=== PATIENT | female | born 1940 | race Caucasian/White ===

== ENCOUNTER → 2016-11-03 | Outpatient (CLI) | payer MEDICARE ==
--- NOTE | 2016-11-03 12:13 | PN ---
DATE OF SERVICE: 11/03/2016 A 75-year-old lady who has been followed in the Sleep Center for treatment of obstructive sleep apnea-hypopnea syndrome. Patient received a new CPAP unit during the last year. She is very satisfied with this unit. It is very quiet. She is able to use equipment every night for the whole night. I checked her CPAP unit. CPAP pressure is 9 cm of water, ramp optometric regimen. Usage is 29 out of 30 for more than 4 hours. Leak is 7 L/min, which is in very good range. Apnea-hypopnea index for the last month only 0.6. Patient is using a nasal mask and she has little irrigation on the nose secondary to the mask. [place] Sleepiness Scale is only 3. MEDICATIONS: Carvedilol, metformin, hydrochlorothiazide, losartan, pravastatin, Levoxyl, omeprazole, baby aspirin, vitamins. During physical exam, patient in no distress. BP 128/73, HR 92, RR 16, weight 164.2, which is about 5 pounds more than last year, temperature 98.0. Oxygen saturation at room air 96%. GENERAL: A pleasant patient without any distress. HEENT: PERRLA, EOMI. Evaluation of oropharynx showed tongue protrudes midline. NECK: Supple. No JVD. Thyroid is not palpable. LUNGS: Clear to percussion and to auscultation. Good air exchange. No wheezing or rhonchi. HEART: S1, S2 regular. No murmurs, gallops or rubs. ABDOMEN: Soft and nontender. Bowel sounds are present. No organomegaly appreciated. EXTREMITIES: No clubbing or cyanosis. FRONT OFFICE COORDINATOR: Awake, alert, and oriented x3. Cranial nerves 2 to 7 intact. There is no fasciculation or atrophy noted. No focal deficits observed. IMPRESSION: 1. Severe obstructive sleep apnea-hypopnea syndrome on full control with CPAP at the pressure of 9 cm of water. Patient demonstrated practically 100% compliance with treatment, benefiting from treatment. 2. Diabetes mellitus. 3. Hypertension. 4. Hypothyroidism. 5. Acid reflux. 6. Hyperlipidemia. 7. Status post hysterectomy. PLAN: 1. We will consider to change patient nasal mask to different style of nasal mask or to a nasal pillow mask. In case of nasal pillow mask, patient could use additional AYR gel. 2. Sleep hygiene with time in bed for at least 8 hours. 3. No driving if feeling any sleepiness. 4. Watching weight. Thank you very much for allowing me to participate in the care of your patient. Sincerely, Onesimo Gupta MD, PhD, FAASM. Diplomat of [place] Board of [employer], Sleep Medicine Board by [place] [employer] [place] Board of [employer] Medicine Profile Saw Operator of [facility] [place]
== END | disposition home or self-care (01) ==
LOC: SLEEP 10:34
PROVIDERS: ATTEND Internal Medicine
DX: G47.33 Obstructive sleep apnea (adult) (pediatric) (principal); E11.9 Type 2 diabetes mellitus without complications; I10 Essential (primary) hypertension; E07.9 Disorder of thyroid, unspecified; K21.9 Gastro-esophageal reflux disease without esophagitis; E78.5 Hyperlipidemia, unspecified; Z98.890 Other specified postprocedural states; Z79.899 Other long term (current) drug therapy

== ENCOUNTER → 2017-10-26 | Outpatient (CLI) | payer MEDICARE ==
--- NOTE | 2017-10-26 14:36 | PN ---
PROGRESS NOTE FOLLOWUP STUDY: DATE OF SERVICE: 10/26/2017 A 76-year-old lady who has been followed in Sleep Center for treatment of obstructive sleep apnea-hypopnea syndrome. Patient continued to use her CPAP equipment every night for the whole night without any significant problems. According to her , no more opening her mouth during the sleep. [place] Sleepiness Scale today is 8. I checked patient's CPAP unit. CPAP pressure is 9 cm of water, usage is 100% of the time more than 4 hours. Average usage 9.1 hours. Leak is 7 L/minute which is in good range. Apnea-hypopnea index only 0.5, which is totally perfect. MEDICATIONS: Metformin, carvedilol, hydrochlorothiazide, losartan, Levoxyl, pravastatin, baby aspirin, vitamins,. PHYSICAL EXAM: Patient in no distress. BP 137/70, HR 72, RR 16, height 5, 5, weight 161. This is 3 pounds less than during previous visit. Body mass index 26.7, temperature 97.9, oxygen saturation at room air 98%. Oropharynx extremely low position of soft palate. Neck Supple, no JVD. Thyroid is not palpable. LUNGS Clear to percussion and to auscultation. Good air exchange. No wheezing or rhonchi. HEART S1, S2 regular. No murmurs, gallops, or rubs. ABDOMEN Soft and nontender. Bowel sounds are present. No organomegaly appreciated. EXTREMITIES No clubbing or cyanosis. ICE PLATFORM SUPERVISOR Awake, alert, and oriented X3. Cranial nerves 2 to 7 intact. There is no fasciculation or atrophy. noted. No focal deficits observed. IMPRESSION: 1. Severe obstructive sleep apnea-hypopnea syndrome. Patient demonstrated 100% compliance with treatment, respiration on full control with CPAP at 9 cm of water, benefitting from treatment. 2. Hypertension. 3. Diabetes mellitus. 4. Hypothyroidism. 5. Acid reflux. 6. Hyperlipidemia. 7. Status post hysterectomy. PLAN: 1. Continue treatment with CPAP every night. 2. Prescription for all necessary CPAP supplies including mask, tube, filters. 3. Watching weight. 4. No driving if feeling sleepiness. 5. Followup visit in 1 year or earlier if patient has any problems. Thank you very much for allowing me to participate in the management of your patient. Sincerely, Onesimo Gupta MD, PhD, FAASM Diplomat of [employer] Specialties [employer] Board of Internal Medicine Terminal Operations Manager of [facility] [place] MMJAMALL / CARISSAN: [id number] /
== END | disposition home or self-care (01) ==
LOC: SLEEP 13:11
PROVIDERS: ATTEND Internal Medicine
DX: G47.33 Obstructive sleep apnea (adult) (pediatric) (principal); I10 Essential (primary) hypertension; E11.9 Type 2 diabetes mellitus without complications; E03.9 Hypothyroidism, unspecified; E78.5 Hyperlipidemia, unspecified; K21.9 Gastro-esophageal reflux disease without esophagitis; Z79.82 Long term (current) use of aspirin; Z79.84 Long term (current) use of oral hypoglycemic drugs; Z79.899 Other long term (current) drug therapy; Z90.710 Acquired absence of both cervix and uterus; Z99.89 Dependence on other enabling machines and devices

== ENCOUNTER → 2018-12-20 | Outpatient (CLI) | payer MEDICARE ==
--- NOTE | 2018-12-20 14:54 | SFUN ---
SLEEP CENTER FOLLOW UP NOTE DATE OF SERVICE: 12/20/2018 A 77-year-old lady who has been followed in the Sleep Center for treatment of obstructive sleep apnea-hypopnea syndrome. The patient continued to use her CPAP equipment every night without significant problems. No snoring with the machine. [place] Sleepiness Scale is normal 3. I checked her CPAP unit. CPAP pressure is 9 cm of water. Patient is using it every night, average 8.8 hours per night. Leak is only 6 L/minute. Apnea-hypopnea index 0.7, which is perfect. MEDICATIONS: Carvedilol, metformin, hydrochlorothiazide, losartan, Levoxyl, pravastatin, baby aspirin, vitamins. PHYSICAL EXAM: Patient in no distress. BP 105/67, HR 76, RR 18, height 5, 4-1/2 inches, weight 164.6 pounds, body mass index 27.7, temperature 98.3, oxygen saturation at room air 96%. OROPHARYNX: Extremely low position of soft palate. Neck Supple, no JVD. Thyroid is not palpable. LUNGS Clear to percussion and to auscultation. Good air exchange. No wheezing or rhonchi. HEART S1, S2 regular. No murmurs, gallops, or rubs. ABDOMEN Soft and nontender. Bowel sounds are present. No organomegaly appreciated. EXTREMITIES No clubbing or cyanosis. EDITOR PUBLICATIONS Awake, alert, and oriented X3. Cranial nerves 2 to 7 intact. There is no fasciculation or atrophy. noted. No focal deficits observed. IMPRESSION: 1. Severe obstructive sleep apnea-hypopnea syndrome, patient demonstrated 100% compliance with treatment, benefitting from treatment. 2. Hypertension. 3. Diabetes mellitus. 4. Hypothyroidism. 5. Acid reflux. 6. Hyperlipidemia. 7. Status post hysterectomy. PLAN: 1. Patient will continue to use CPAP equipment every night for the whole night. 2. Prescription for all necessary CPAP supplies, including [place] small, medium size nasal mask. I will write her prescription for all necessary CPAP supplies today. 3. Watching weight. 4. Sleep hygiene with regular time in bed for 7-1/2 hours. 5. No driving if feeling sleepiness. 6. Followup visit in 1 year or earlier if patient has any problems. Thank you very much for allowing me to participate in the management of your patient. Sincerely, Onesimo Gupta MD, PhD, FAASM Diplomat of [employer] Board of Medical Specialties [employer] Board of Internal Medicine Event Mgr of [facility] [place] MMODL / CARISSAN: [id number] /
== END ==
LOC: SLEEP 13:23
PROVIDERS: ATTEND Internal Medicine
DX: G47.33 Obstructive sleep apnea (adult) (pediatric) (principal); I10 Essential (primary) hypertension; E11.9 Type 2 diabetes mellitus without complications; E03.9 Hypothyroidism, unspecified; K21.9 Gastro-esophageal reflux disease without esophagitis; E78.5 Hyperlipidemia, unspecified; Z90.710 Acquired absence of both cervix and uterus; Z99.89 Dependence on other enabling machines and devices; Z79.899 Other long term (current) drug therapy; Z79.84 Long term (current) use of oral hypoglycemic drugs; Z79.82 Long term (current) use of aspirin

== ENCOUNTER → 2021-01-14 | Outpatient (CLI) | payer MEDICARE ==
--- NOTE | 2021-01-14 16:58 | SFUN ---
SLEEP CENTER FOLLOW UP NOTE DATE OF SERVICE: 01/14/2021 This 80-year-old lady has been followed in Sleep Center for treatment of obstructive sleep apnea-hypopnea syndrome. Patient continues to use her CPAP equipment every night, but she complains that her nasal mask irritates her nasal bridge. [place] Sleepiness Scale today is 5, which is normal. I checked her CPAP unit. CPAP pressure is 9 cm of water. Usage is 30/30 nights for more than 4 hours with average usage 9.3 hours per night, which is great compliance. Leak is only 1 L/minute. Apnea-hypopnea index is 0.5, which is perfect. MEDICATIONS: 1. Metformin 500 mg one tablet in the morning and two in the afternoon. 2. Levoxyl 75 mcg five times per week. 3. Famotidine 20 mg once a day. 4. Irbesartan 300 mg once a day. 5. 20 mg once a day. 6. Carvedilol 12.5 mg twice a day. 7. 2000 mg twice a day. PHYSICAL EXAMINATION: GENERAL: A pleasant lady without distress. VITAL SIGNS: BP 153/84, HR 83, RR 12, height 5 feet 5 inches, weight 172.8, body mass index 28.6, temperature 98.5, oxygen saturation at room air 97%. HEENT: PERRLA, EOMI. Evaluation of oropharynx showed tongue protrudes midline. Extremely low position of soft palate. Mallampati IV. NECK: Supple. No JVD. Thyroid is not palpable. LUNGS: Clear to percussion and to auscultation. Good air exchange. No wheezing or rhonchi. HEART: S1, S2 regular. No murmurs, gallops or rubs. ABDOMEN: Soft and nontender. Bowel sounds are present. No organomegaly appreciated. EXTREMITIES: No clubbing or cyanosis. CERTIFIED FLEX ENDOSCOPE REPROCESSOR: Awake, alert, and oriented X3. Cranial nerves 2 to 7 intact. There is no fasciculation or atrophy. noted. No focal deficits observed. GENERAL: lady without distress IMPRESSION: 1. Severe obstructive sleep apnea-hypopnea syndrome. Patient demonstrated 100% compliance with treatment, benefitting from treatment. Normal respiration on CPAP. 2. Hypertension. 3. Diabetes mellitus. 4. Hypothyroidism. 5. Acid reflux. 6. Hyperlipidemia. 7. Status post hysterectomy. PLAN: 1. I discussed with the patient the possibility of changing her mask to a different style. We will try AirFit P10 nasal pillow mask. I wrote a prescription for this new type of mask and all other necessary supplies. 2. Patient will continue to use PAP equipment every night for the whole night. 3. Sleep hygiene with regular time in bed for at least 7-1/2 to 8 hours. 4. Precautions related to driving. No driving if feeling sleepiness. 5. I will maintain all necessary prescription for PAP supplies including mask, tube, filters. 6. Watching weight. 7. Follow-up visit in 6 months or earlier if patient has any problems. Thank you very much for allowing me to participate in the management of your patient. Sincerely, Onesimo Gupta MD, PhD, FAASM Diplomat of [employer] Board of Medical Specialties French Board of Internal Medicine Java Scala Developer of [facility] [place] MMODL / CARISSAN: [id number] /
== END ==
LOC: SLEEP 15:06
PROVIDERS: ATTEND Internal Medicine
DX: G47.33 Obstructive sleep apnea (adult) (pediatric) (principal); I10 Essential (primary) hypertension; E11.9 Type 2 diabetes mellitus without complications; E03.9 Hypothyroidism, unspecified; K21.9 Gastro-esophageal reflux disease without esophagitis; E78.5 Hyperlipidemia, unspecified; Z90.711 Acquired absence of uterus with remaining cervical stump

== ENCOUNTER → 2021-08-05 | Outpatient (CLI) | payer MEDICARE ==
--- NOTE | 2021-08-06 08:49 | SFUN ---
SLEEP CENTER FOLLOW UP NOTE DATE OF SERVICE: 08/05/2021 80-year-old lady has been followed in Sleep Center for treatment of obstructive sleep apnea-hypopnea syndrome. The patient continued to use her CPAP equipment every night, getting her supplies in time changing her air filter in the machine. [place] Sleepiness Scale today is 4. I checked her CPAP unit. Pressure is 9 cm of water. Usage is 30/30 nights for more than 4 hours. Average 9.3 hours per night. Leak is only 2 L/minute. Apnea-hypopnea index is only 0.6 which is absolutely perfect. MEDICATIONS: Glipizide 10 mg once a day, metformin 500 mg 3 times a day, Levoxyl 75 mcg once a day, lisinopril 40 mg once a day, carvedilol 12.5 mg twice a day, famotidine 20 mg once a day, Lipitor 20 mg once a day. PHYSICAL EXAMINATION: GENERAL: Patient in no distress. BP 124/69, HR 82, RR 15, height 5 feet 4-3/4 inches, weight 169.6, body mass index 28.3, temperature 97.4. Oropharynx: Extremely low position of soft palate, Mallampati 4. NECK: Supple, no JVD. Thyroid is not palpable. LUNGS: Clear to percussion and to auscultation. Good air exchange. No wheezing or rhonchi. HEART: S1, S2 regular. No murmurs, gallops, or rubs. ABDOMEN: Soft and nontender. Bowel sounds are present. No organomegaly appreciated. EXTREMITIES: No clubbing or cyanosis. TECHNICAL SPECIALIST CYTOGENETICS: Awake, alert, and oriented X3. Cranial nerves 2 to 7 intact. There is no fasciculation or atrophy. noted. No focal deficits observed. IMPRESSION: 1. Severe obstructive sleep apnea-hypopnea syndrome. Patient demonstrated great compliance with treatment benefitting from treatment. 2. Hypertension. 3. Diabetes mellitus. 4. Hyperlipidemia. 5. Hypothyroidism. 6. Acid reflux. 7. Status post hysterectomy. PLAN: 1. Patient will continue to use PAP equipment every night for the whole night. 2. Sleep hygiene with regular time in bed for at least 7-1/2 to 8 hours. 3. Precautions related to driving. No driving if feeling sleepiness. 4. I will maintain all necessary prescription for PAP supplies including mask, tube, filters. 5. Watching weight. 6. Follow-up visit in 6 months or earlier if patient has any problems. Thank you very much for allowing me to participate in the management of your patient. Sincerely, Onesimo Gupta MD, PhD, FAASM Diplomat of [place] Board of Medical Specialties Sleep Medicine Board of [place] Board of Internal Medicine Disk Recoater of [facility] [place] MMCAITLYN / DANNY: [id number] /
== END ==
LOC: SLEEP 12:52
PROVIDERS: ATTEND Internal Medicine
DX: G47.33 Obstructive sleep apnea (adult) (pediatric) (principal); I10 Essential (primary) hypertension; E11.9 Type 2 diabetes mellitus without complications; E78.5 Hyperlipidemia, unspecified; E03.9 Hypothyroidism, unspecified; K21.9 Gastro-esophageal reflux disease without esophagitis; Z90.710 Acquired absence of both cervix and uterus; Z79.84 Long term (current) use of oral hypoglycemic drugs; Z79.899 Other long term (current) drug therapy; Z79.890 Hormone replacement therapy

== ENCOUNTER → 2022-08-18 | Outpatient (CLI) | payer MEDICARE ==
--- NOTE | 2022-08-18 14:04 | P.PN ---
Subjective DATE: 08/18/2022 FOLLOW UP VISIT. Patient with obstructive sleep apnea hypopnea syndrome return to sleep center for follow-up visit. Information from previous visit have been reviewed. Patient is using PAP equipment every night for the whole night, getting PAP supplies in time. The patient does not have significant problems with the mask, PAP unit and humidification. [place] sleepiness scale is 7, which is normal. I checked information from PAP unit. PAP unit pressure 9 cm H2O. Usage is 100 % for more then 4 hours, average 9.6 hours per night. Leak is 4 l/m, which is in acceptable range. Apnea Hypopnea Index is 0.5, which is normal. MEDICATIONS: Glipizide 10 mg once a day, metformin 500 mg 3 times a day, Levoxyl 75 g once a day, lisinopril 40 mg once a day., carvedilol 12.5 mg twice a day, famotidine 20 mg once a day, Lipitor 20 mg once a day. During physical exam: GENERAL: A pleasant patient without any distress. VITAL SIGNS: BP 131/75, HR 79, RR 16, weight 170.4, temperature 98.3, oxygen saturation at room air 98 % . HEENT: PERRLA, EOMI.low position of soft palate, Mallapati 4 . NECK: Supple. No JVD. LUNGS: Clear to percussion and to auscultation. Good air exchange. No wheezing or rhonchi. HEART: S1, S2 regular. ABDOMEN: Soft and nontender.[] EXTREMITIES: No clubbing or cyanosis. FORENSIC EXAMINER: Awake, alert, and oriented x3. No focal deficit. Impressions: 1. Obstructive sleep apnea-hypopnea syndrome. Patient demonstrated great compliance with treatment, benefiting from treatment. 2, hypertension. 3.diabetes mellitus. 4 hyperlipidemia. 5 hypothyroidism. 6 acid reflux 7. STATUS POST HYSTERECTOMY Plan: 1. Continue using PAP equipment every night for the whole night. 2. To change air filter at least 1-2 times per month. 3. PAP unit should stay lower then position of the head. 4. Advised patient to remove all remaining water from humidifier canister daily and make it dry after each usage. Refill canister with fresh distilled water before each usage. 5. Sleep hygiene with regular time in bed for at least 8 hours. 6. Precautions related to driving. No driving if feel any sleepiness. 7. I will maintain prescription for PAP supplies including mask, tube, filters. 8. Follow up visit in 6 months or earlier if patient has any problems. 9. Watching weight. Thank you very much for allowing me to participate in the management of your patient. Onesimo Gupta MD, PhD, FAASM. Diplomat of [place] Board of Sleep Medicine, Sleep Medicine Board by [place] Board of Internal Medicine Counter Hop of [facility] [place]
== END ==
LOC: SLEEP 12:53
PROVIDERS: ATTEND Internal Medicine
DX: G47.33 Obstructive sleep apnea (adult) (pediatric) (principal); Z99.89 Dependence on other enabling machines and devices; I10 Essential (primary) hypertension; E11.9 Type 2 diabetes mellitus without complications; E78.5 Hyperlipidemia, unspecified; E03.9 Hypothyroidism, unspecified; K21.9 Gastro-esophageal reflux disease without esophagitis; Z90.710 Acquired absence of both cervix and uterus; Z79.899 Other long term (current) drug therapy; Z79.84 Long term (current) use of oral hypoglycemic drugs
CPT/HCPCS: 99212

== ENCOUNTER → 2023-02-16 | Outpatient (CLI) | payer MEDICARE ==
--- NOTE | 2023-02-16 14:01 | P.PN ---
Subjective DATE: 02/16/2023 FOLLOW UP VISIT. Patient with obstructive sleep apnea hypopnea syndrome return to sleep center for follow-up visit. Information from previous visit have been reviewed. Patient is using PAP equipment every night for the whole night, getting PAP supplies in time. The patient does not have significant problems with the mask, PAP unit and humidification. [place] sleepiness scale is 7, which is normal. I checked information from PAP unit. PAP unit pressure 9 cm H2O. Usage is 90 % for more then 4 hours, average 7 hours per night. Leak is 10 l/m, which is in acceptable range. Apnea Hypopnea Index is 1.4, which is normal. MEDICATIONS:1. Metformin 500 mg twice a day 2. Levoxyl 75 mg 5 times per week 3. Famotidine 20 mg once a day 4. Carvedilol 12.5 mg twice a day 5. Lipitor 20 mg once a day During physical exam: GENERAL: A pleasant patient without any distress. VITAL SIGNS: BP 136/70, HR 89, RR 12 , weight 159.4, temperature 98.1, oxygen saturation at room air 97 % . HEENT: PERRLA, EOMI.low position of soft palate, Mallapati 4 . NECK: Supple. No JVD. LUNGS: Clear to percussion and to auscultation. Good air exchange. No wheezing or rhonchi. HEART: S1, S2 regular. ABDOMEN: Soft and nontender.[] EXTREMITIES: No clubbing or cyanosis. COLLEGE SPECIALIST: Awake, alert, and oriented x3. No focal deficit. Impressions: 1. Obstructive sleep apnea-hypopnea syndrome. Patient demonstrated great compliance with treatment, benefiting from treatment. 2. Hypertension. 3. Diabetes mellitus. 4. Hyperlipidemia. 5. Hypothyroidism. 6. Acid reflux. 7. Status post hysterectomy. Plan: 1. Continue using PAP equipment every night for the whole night. 2. To change air filter at least 1-2 times per month. 3. PAP unit should stay lower then position of the head. 4. Advised patient to remove all remaining water from humidifier canister daily and make it dry after each usage. Refill canister with fresh distilled water before each usage. 5. Sleep hygiene with regular time in bed for at least 8 hours. 6. Precautions related to driving. No driving if feel any sleepiness. 7. I will maintain prescription for PAP supplies including mask, tube, filters. 8. Watching weight. 9. Follow up visit in 6 months or earlier if patient has any problems. Thank you very much for allowing me to participate in the management of your patient. Onesimo Gupta MD, PhD, FAASM. Diplomat of [place] Board of Sleep Medicine, Sleep Medicine Board by [place] [employer] of Internal Medicine Sap Ppm Consultant of [facility] [place]
== END ==
LOC: 3 N SLEEP 13:12
PROVIDERS: ATTEND Internal Medicine
DX: G47.33 Obstructive sleep apnea (adult) (pediatric) (principal); I10 Essential (primary) hypertension; E11.9 Type 2 diabetes mellitus without complications; E03.9 Hypothyroidism, unspecified; E78.5 Hyperlipidemia, unspecified; K21.9 Gastro-esophageal reflux disease without esophagitis; Z79.84 Long term (current) use of oral hypoglycemic drugs; Z79.899 Other long term (current) drug therapy; Z90.710 Acquired absence of both cervix and uterus; Z99.89 Dependence on other enabling machines and devices
CPT/HCPCS: 99212

== ENCOUNTER → 2023-08-24 | Outpatient (CLI) | payer MEDICARE ==
--- NOTE | 2023-08-24 12:03 | P.PN ---
Subjective DATE: 08/24/2023 FOLLOW UP VISIT. Patient with obstructive sleep apnea hypopnea syndrome return to sleep center for follow-up visit. Information from previous visit have been reviewed. Patient is using PAP equipment every night for the whole night, getting PAP supplies in time. The patient does not have significant problems with the mask, PAP unit and humidification. [place] sleepiness scale is 8, which is normal. I checked information from PAP unit and discussed it with patient and family in details. PAP unit pressure 9 cm H2O. Usage is 60 %, average 3.3 hours per night. Leak is 8 l/m, which is in acceptable range. Apnea Hypopnea Index is 2.5, which is normal. MEDICATIONS:1. Carvedilol 12.5 mg twice a day 2. Pravastatin 3. Famotidine 20 mg once a day 4. Levoxyl During physical exam: GENERAL: A pleasant patient without any distress. VITAL SIGNS: BP 118/71, HR 86, RR 16 , weight 149, temperature 97.9, oxygen saturation at room air 99 % . HEENT: PERRLA, EOMI.low position of soft palate, Mallapati 4 . NECK: Supple. No JVD. LUNGS: Clear to percussion and to auscultation. Good air exchange. No wheezing or rhonchi. HEART: S1, S2 regular. ABDOMEN: Soft and nontender.[] EXTREMITIES: No clubbing or cyanosis. SURVEILLANCE SYSTEM MONITOR: Awake, alert, and oriented x3. No focal deficit. Impressions: 1. Obstructive sleep apnea-hypopnea syndrome. Patient demonstrated slightly low compliance with treatment, benefiting from treatment. 2. hypertension. 3. History of diabetes mellitus. 4. Hyperlipidemia. 5. History of hypothyroidism. 6. Acid reflux. 7. Status post hysterectomy. Plan: 1. Continue using PAP equipment every night for the whole night. Patient promised to follow recommendations 2. To change air filter at least 1-2 times per month. 3. PAP unit should stay lower then position of the head. 4. Advised patient to remove all remaining water from humidifier canister daily and make it dry after each usage. Refill canister with fresh distilled water before each usage. 5. Sleep hygiene with regular time in bed for at least 8 hours. 6. Precautions related to driving. No driving if feel any sleepiness. 7. I will maintain prescription for PAP supplies including mask, tube, filters. 8. Follow up visit in 6 months or earlier if patient has any problems. Thank you very much for allowing me to participate in the management of your patient. Onesimo Gupta MD, PhD, FAASM. Diplomat of [place] Board of Sleep Medicine, Sleep Medicine Board by [place] Board of Internal Medicine Appeals Nurse of [facility] [place]
== END ==
LOC: 3 N SLEEP 11:42
PROVIDERS: ATTEND Internal Medicine
DX: G47.33 Obstructive sleep apnea (adult) (pediatric) (principal); I10 Essential (primary) hypertension; E11.9 Type 2 diabetes mellitus without complications; E78.5 Hyperlipidemia, unspecified; E03.9 Hypothyroidism, unspecified; K21.9 Gastro-esophageal reflux disease without esophagitis; Z99.89 Dependence on other enabling machines and devices; Z90.710 Acquired absence of both cervix and uterus; Z79.890 Hormone replacement therapy
CPT/HCPCS: 99212

== ENCOUNTER → 2024-03-20 | Outpatient (CLI) | payer MEDICARE ==
[2024-03-20 10:47] VITALS: BP 138/77; PULSE 88; RESP 16; TEMP 98.1
--- NOTE | 2024-03-20 11:17 | P.PROGSL ---
Subjective DATE: 03/20/2024 FOLLOW UP VISIT. Patient with obstructive sleep apnea hypopnea syndrome return to sleep center for follow-up visit. Information from previous visit have been reviewed. Patient is using CPAP equipment, but not every night. According to her she sleeps well without CPAP. The patient does not have significant problems with the mask, PAP unit and humidification. [place] sleepiness scale is 8, which is normal. I checked information from PAP unit. PAP unit pressure 9 cm H2O. Leak is 10 l/m, which is in acceptable range. Apnea Hypopnea Index is 0.7, which is normal. Motor life expectancy was exceeded. MEDICATIONS: Please see below During physical exam: GENERAL: A pleasant patient without any distress. VITAL SIGNS: Please see below. HEENT: PERRLA, EOMI.low position of soft palate, Mallapati 4 . NECK: Supple. No JVD. LUNGS: Clear to percussion and to auscultation. Good air exchange. No wheezing or rhonchi. HEART: S1, S2 regular. ABDOMEN: Soft and nontender.[] EXTREMITIES: No clubbing or cyanosis. EXERCISE SPECIALIST: Awake, alert, and oriented x3. No focal deficit. Impressions: 1. Obstructive sleep apnea-hypopnea syndrome. Presently patient does not use CPAP equipment every night. 2. Hypertension. 3. History of hypothyroidism. 4. History of diabetes mellitus. 5. Hyperlipidemia. 6. Acid reflux. 7. Status post hysterectomy. Plan: 1. Continue using PAP equipment every night for the whole night. 2. Repeat home sleep apnea test for evaluation of patient breathing during sleep at the present time. 3. PAP unit should stay lower then position of the head. 4. Advised patient to remove all remaining water from humidifier canister daily and make it dry after each usage. Refill canister with fresh distilled water before each usage. 5. Sleep hygiene with regular time in bed for at least 8 hours. 6. Precautions related to driving. No driving if feel any sleepiness. 7. I will maintain prescription for PAP supplies including mask, tube, filters. 8. Follow up visit in 6 months or earlier if patient has any problems. 9. Following plan after reading home sleep apnea test. Kris luong thank you Thank you very much for allowing me to participate in the management of your patient. Onesimo Gupta MD, PhD, FAASM. Diplomat of [place] Board of Sleep Medicine, Sleep Medicine Board by [place] Board of Internal Medicine Yard Pipe Grader of [facility] [place] Objective - Vital Signs Vital Signs: Vital Signs Temp 98.1 F 03/20/24 10:45 Pulse 88 03/20/24 10:45 Resp 16 03/20/24 10:45 BP 138/77 03/20/24 10:45 Pulse Ox 97 03/20/24 10:45 FiO2 Intake & Output 03/19/24 03/20/24 03/20/24 18:59 06:59 18:59 Weight 63.049 kg Home Medications: Home Medications Medication Instructions Recorded Confirmed Type carvediloL 12.5 mg PO DAILY 07/18/19 03/20/24 History Famotidine 20 mg PO DAILY 03/20/24 03/20/24 History hydroCHLOROthiazide 25 mg PO DAILY 03/20/24 03/20/24 History lisinopriL 40 mg PO DAILY 03/20/24 03/20/24 History
== END ==
LOC: 3 N SLEEP 10:36
PROVIDERS: ATTEND Internal Medicine
DX: G47.33 Obstructive sleep apnea (adult) (pediatric) (principal); I10 Essential (primary) hypertension; E78.5 Hyperlipidemia, unspecified; K21.9 Gastro-esophageal reflux disease without esophagitis; Z90.710 Acquired absence of both cervix and uterus; Z99.89 Dependence on other enabling machines and devices; Z86.39 Personal history of other endocrine, nutritional and metabolic disease; Z79.899 Other long term (current) drug therapy
CPT/HCPCS: 99212

== ENCOUNTER → 2024-03-22 | Outpatient (CLI) | payer MEDICARE ==
--- NOTE | 2024-03-28 10:46 | P.PCN ---
Description of Procedure: CLINICAL: A home sleep apnea test has been done for confirmation of possible obstructive sleep apnea-hypopnea syndrome. DESCRIPTION OF PROCEDURE: RESULTS: Recording time was 7 hours 12 minutes. Evaluation time was 6 hours 43 minutes. Evaluation time is sufficient for making conclusion about results of the test. Raw data of sleep recording has been reviewed and is adequate. Respiratory channel showed 244 apneas and 38 hypopneas. Apnea-hypopnea index was 41.9 per hour. Pulse rate in the range between minimum 68, maximum 107, average 77 by computer calculation. Lowest desaturation was 67%. IMPRESSION: 1. Severe Obstructive Sleep Apnea Hypopnea Syndrome with severe oxygen desaturation. Please see other impressions from consultation. PLAN: 1. The patient should have PAP titration for correction of respiratory abnormallities during sleep. 2. Sleep hygiene with regular time in bed for at least 8 hours. 3. Watching weight. 4. No driving if feeling any sleepiness. Thank you very much for allowing me to participate in the management of your patient. Sincerely, Onesimo Gupta MD, PhD, FAASM Diplomat of [employer] [facility] [employer] of [employer] [facility] Executive Director of [facility] [place] cc: Rosendo Stokes DO
== END ==
LOC: 3 N SLEEP 12:46
PROVIDERS: ATTEND Internal Medicine
DX: G47.33 Obstructive sleep apnea (adult) (pediatric) (principal); G47.36 Sleep related hypoventilation in conditions classified elsewhere